=== PATIENT | male | born 1985 | race Hispanic/Latino ===

== ENCOUNTER 2017-04-16 02:54 | Emergency (ER) | payer MEDICAID ==
[2017-04-16 03:40] VITALS: BMI 31.6
[2017-04-16 03:45] VITALS: TEMP 97.7
--- NOTE | 2017-04-16 04:06 | ED PDOC ---
Arrival/HPI - General Chief Complaint: Abdominal Pain Time Seen by Provider: 04/16/17 03:36 Historian: Patient - History of Present Illness Narrative History of Present Illness (Text): 04/16/17 04:05 A 31 year old male, whose past medical history includes CVA presents to the emergency department complaining of some vague upper abdominal discomfort with occassional nausea since yesterday. Patient is able tolerate PO intake. Patient denies any fever,vomiting, diarrhea, appetite changes, chest pain, shortness of breath or any other complaints. Patient takes coumadin daily. Time/Duration: Other (yesterday) Symptom Course: Unchanged Quality: Other Context: Home Past Medical History - Provider Review Nursing Documentation Reviewed: Yes - Cardiac Hx Cardiac Disorders: No - Pulmonary Hx Respiratory Disorders: No - Neurological Hx Neurological Disorder: Yes HX Cerebrovascular Accident: Yes - HEENT Hx HEENT Disorder: No - Renal Hx Renal Disorder: No - Endocrine/Metabolic Hx Endocrine Disorders: No - Hematological/Oncological Hx Blood Disorders: Yes Other/Comment: Antiphospholipid syndrome - Integumentary Hx Dermatological Disorder: No - Musculoskeletal/Rheumatological Hx Musculoskeletal Disorders: No - Gastrointestinal Hx Gastrointestinal Disorders: No - Genitourinary/Gynecological Hx Genitourinary Disorders: No - Psychiatric Hx Psychophysiologic Disorder: No Hx Substance Use: No Family/Social History - Physician Review Nursing Documentation Reviewed: Yes Family/Social History: No Known Family HX Smoking Status: Never Smoked Hx Alcohol Use: Yes Frequency of alcohol use: Socially Hx Substance Use: No Allergies/Home Meds Allergies/Adverse Reactions: Allergies No Known Allergies Allergy (Verified 04/16/17 03:40) Home Medications: Home Meds Medication Instructions Recorded Confirmed Warfarin [Coumadin] 2.5 mg PO FRI 04/16/17 04/16/17 Warfarin [Coumadin] 2.5 mg PO SUN 04/16/17 04/16/17 Warfarin [Coumadin] 2.5 mg PO TUE 04/16/17 04/16/17 Warfarin [Coumadin] 2.5 mg PO WED 04/16/17 04/16/17 Warfarin [Coumadin] 5 mg PO MON 04/16/17 04/16/17 Warfarin [Coumadin] 5 mg PO SAT 04/16/17 04/16/17 Warfarin [Coumadin] 5 mg PO ANA 04/16/17 04/16/17 Review of Systems - Physician Review All systems were reviewed & negative as marked: Yes - Review of Systems Constitutional: absent: Fevers, Night Sweats Respiratory: absent: SOB Cardiovascular: absent: Chest Pain Gastrointestinal: Abdominal Pain (epigastric). absent: Diarrhea, Nausea, Vomiting, Appetite Changes Physical Exam Vital Signs Reviewed: Yes Vital Signs Temp Pulse Resp BP Pulse Ox 04/16/17 03:42 97.7 F 85 19 138/91 H 100 Temperature: Afebrile Blood Pressure: Hypertensive Pulse: Regular Respiratory Rate: Normal Appearance: Positive for: Well-Appearing, Non-Toxic, Comfortable Pain Distress: None Mental Status: Positive for: Alert and Oriented X 3 - Systems Exam Head: Present: Atraumatic, Normocephalic Pupils: Present: PERRL Extroacular Muscles: Present: EOMI Conjunctiva: Present: Normal Mouth: Present: Moist Mucous Membranes Neck: Present: Normal Range of Motion Respiratory/Chest: Present: Clear to Auscultation, Good Air Exchange. No: Respiratory Distress, Accessory Muscle Use Cardiovascular: Present: Regular Rate and Rhythm, Normal S1, S2. No: Murmurs Abdomen: Present: Normal Bowel Sounds. No: Tenderness, Distention, Peritoneal Signs Back: Present: Normal Inspection Upper Extremity: Present: Normal Inspection. No: Cyanosis, Edema Lower Extremity: Present: Normal Inspection. No: Edema Neurological: Present: GCS=15, CN II-XII Intact, Speech Normal Skin: Present: Warm, Dry, Normal Color. No: Rashes Psychiatric: Present: Alert, Oriented x 3, Normal Insight, Normal Concentration Medical Decision Making ED Course and Treatment: 04/16/17 04:05 Impression: A 31 year old male with epigastric abdominal pain. Plan: -- Abdomen and pelvis CT -- Labs -- Urinalysis -- Morphine, IV fluids and Zofran -- Reassess and disposition Progress Notes: Report date: 04/16/17 05:19 EXAM: CT Abdomen and Pelvis Without Intravenous Contrast Dictated and Authenticated by: Justin Freitas MD IMPRESSION: 1. No definite acute intraabdominal abnormality. 2. Incidental/non-acute findings are described above. - Lab Interpretations Lab Results: 04/16/17 04:30 04/16/17 04:30 Lab Results 04/16/17 04:30: PT 27.4 H, INR 2.36 H, APTT 41.0 H 04/16/17 04:30: WBC 10.4, RBC 5.28, Hgb 14.8, Hct 45.4, MCV 86.0, MCH 28.0, MCHC 32.6, RDW 14.0, Plt Count 236, MPV 10.0 04/16/17 04:30: Sodium 143, Potassium 3.9, Chloride 104, Carbon Dioxide 25, Anion Gap 18, BUN 11, Creatinine 0.8, Est GFR ( Amer) > 60, Est GFR (Non- Af Amer) > 60, Random Glucose 103, Calcium 10.2, Total Bilirubin 0.4, AST 22, ALT 32, Alkaline Phosphatase 83, Total Protein 8.2, Albumin 4.3, Globulin 3.9, Albumin/Globulin Ratio 1.1, Lipase 45 I have reviewed the lab results: Yes - RAD Interpretation Radiology Orders: 04/16/17 04:08 ABD & PELVIS W/O PO OR IV CONT [CT] Stat - Medication Orders Current Medication Orders: Discontinued Medications Sodium Chloride (Sodium Chloride 0.9%) 1,000 mls @ 999 mls/hr IV .Q1H1M STA Stop: 04/16/17 05:07 Last Admin: 04/16/17 04:35 Dose: 999 mls/hr eMAR Start Stop Document 04/16/17 04:35 JOL (Rec: 04/16/17 04:36 [id number]) Intravenous Solution Start Date 04/16/17 Start Time 04:35 End Date 04/16/17 End time 05:36 Total Infusion Time 61 Morphine Sulfate (Morphine) 2 mg IVP STAT STA Stop: 04/16/17 04:08 Last Admin: 04/16/17 04:36 Dose: 2 mg MAR Pain Assessment Document 04/16/17 04:36 JOL (Rec: 04/16/17 04:36 [id number] Pain Reassessment Is this a pain reassessment? No Sleep Is patient sleeping during reassessment? No Presence of Pain Presence of Pain Yes Pain Scale Used Pain Scale Used Numeric Location Pain Location Body Site Abdomen Description Intensity of Pain at present 7 Acceptable Level of Pain 2 IVP Administration Document 04/16/17 04:36 JOL (Rec: 04/16/17 04:36 [id number]) Charges for Administration # of IVP Administrations 1 Ondansetron HCl (Zofran Inj) 4 mg IVP ONCE ONE Stop: 04/16/17 04:08 Last Admin: 04/16/17 04:36 Dose: 4 mg IVP Administration Document 04/16/17 04:36 STANLEY (Rec: 04/16/17 04:36 [id number]) Charges for Administration # of IVP Administrations 1 - Scribe Statement The provider has reviewed the documentation as recorded by the Scribe Moriah Thomas Provider Scribe Attestation: All medical record entries made by the Scribe were at my direction and personally dictated by me. I have reviewed the chart and agree that the record accurately reflects my personal performance of the history, physical exam, medical decision making, and the department course for this patient. I have also personally directed, reviewed, and agree with the discharge instructions and disposition. Disposition/Present on Arrival - Present on Arrival Any Indicators Present on Arrival: No History of DVT/PE: No History of Uncontrolled Diabetes: No Urinary Catheter: No History of Decub. Ulcer: No History Surgical Site Infection Following: None - Disposition Have Diagnosis and Disposition been Completed?: Yes Diagnosis: Gastritis Disposition: HOME/ ROUTINE Disposition Time: 06:14 Patient Plan: Discharge Condition: GOOD Discharge Instructions (ExitCare): Gastritis (DC) Additional Instructions: Take meds as prescribed/follow up with your doctor this week Prescriptions: Pantoprazole [Protonix] 40 mg PO DAILY #10 ect Ondansetron [Zofran Odt] 4 mg PO Q6 PRN #12 odt PRN Reason: Nausea/Vomiting Referrals: Sammy Loomis MD [Staff Provider] - Follow up with primary Forms: [employer] (Czech)
[2017-04-16] MEDS ORDERED: Morphine 2 mg/ml ISec IVP STA (04:07)
[2017-04-16] MEDS ORDERED: Sodium Chloride 0.9% 1,000 ML IV STA (04:07)
[2017-04-16 04:39] LABS: HEMOGLOBIN 14.8 g/dL (14.0-18.0); MEAN CORPUSCULAR HGB CONC 32.6 g/dl (31.0-37.0); RBC 5.28 10^6/uL (3.5-6.1); WHITE BLOOD COUNT 10.4 10^3/ul (4.5-11.0)
[2017-04-16 04:50] LABS: ALB/GLOB RATIO 1.1 (1.1-1.8); ALBUMIN 4.3 g/dL (3.0-4.8); ALT/SGPT 32 U/L (7-56); AST/SGOT 22 U/L (17-59); BLOOD UREA NITROGEN 11 mg/dL (7-21); CALCIUM 10.2 mg/dL (8.4-10.5); GFR AFRICAN-AMERICAN > 60; GFR NON-AFRICAN AMERICAN > 60; LIPASE 45 U/L (23-300)
[2017-04-16 04:51] LABS: INR 2.36 (0.93-1.08); PROTHROMBIN TIME 27.4 SECONDS (9.4-12.5)
--- NOTE | 2017-04-16 05:20 | CT ---
EXAM: CT Abdomen and Pelvis Without Intravenous Contrast CLINICAL HISTORY: 31 years old, male; Pain; Abdominal pain; Localized; Upper TECHNIQUE: Axial computed tomography images of the abdomen and pelvis without intravenous contrast. All CT scans at this facility use one or more dose reduction techniques, viz.: automated exposure control; ma/kV adjustment per patient size (including targeted exams where dose is matched to indication; i.e. head); or iterative reconstruction technique. Coronal and sagittal reformatted images were created and reviewed. COMPARISON: No relevant prior studies available. FINDINGS: Limitations: Lack of intravenous contrast. Lower thorax: No acute findings. ABDOMEN: Liver: Unremarkable. Gallbladder and bile ducts: No calcified stones. No ductal dilation. Pancreas: Unremarkable. No ductal dilation. Spleen: No splenomegaly. Adrenals: No mass. Kidneys and ureters: No renal calculi. No hydronephrosis. Stomach and bowel: No definite mural thickening. No obstruction. Appendix: Normal caliber. No inflammation. PELVIS: Bladder: Unremarkable. No stones. Reproductive: Unremarkable as visualized. ABDOMEN and PELVIS: Intraperitoneal space: No significant fluid collection. No free air. Bones/joints: No acute fracture. Soft tissues: Tiny umbilical hernia containing fat. Vasculature: Unremarkable. No aneurysm. Lymph nodes: No pathologically enlarged lymph nodes. IMPRESSION: 1. No definite acute intraabdominal abnormality. 2. Incidental/non-acute findings are described above.
[2017-04-16 06:25] VITALS: RESP 18; O2SAT 97
[2017-04-16 06:30] VITALS: BP 125/64; PULSE 69
== END 2017-04-16 06:30 | disposition home or self-care (01) ==
LOC: ED 02:54
DX: K29.70 Gastritis, unspecified, without bleeding (principal)
CPT/HCPCS: 74176; 80053; 83690; 85027; 85610; 85730; 96361; 96374; 96375; 99284; J2270; J2405; J7040